=== PATIENT | female | born 2000 | race Caucasian/White ===

== ENCOUNTER 2019-02-26 11:18 | Emergency (ER) | payer OTHER ==
[~2019-02-26] VITALS: Ht 167.6 cm; Wt 50.6 kg
--- NOTE | 2019-02-26 11:42 | NUR ---
FIRST CONTACT WITH PT: Pt states, "starting this morning I have had on and off sharp pains in my lower right abdomen. I haven't vomited. My last period ended last week. I only take control." NADN. Call light within reach. Pt's mother at bedside. Warm blanket offered for comfort measures.
--- NOTE | 2019-02-26 11:54 | NUR ---
Pt declines offer of pain medication or nausea medication. Pt ambulates with steady gait and balance to restroom.
[2019-02-26 11:59] LABS: BASOPHILS # (AUTO) 0.05 x10^3/uL (0-0.3); BASOPHILS % (AUTO) 1 % (0-1); EOSINOPHILS # (AUTO) 0.24 x10^3/uL (0-0.8); EOSINOPHILS % (AUTO) 3 % (1-7); LYMPHOCYTES # (AUTO) 2.31 x10^3/uL (1-6.1); LYMPHOCYTES % (AUTO) 27 % (22-44); MD NO; MEAN CORPUSCULAR HEMOGLOBIN 31.3 pg (27.0-34.8); MEAN CORPUSCULAR HGB CONC 34.2 g/dL (32.4-35.8); MEAN CORPUSCULAR VOLUME 91.3 fL (80-100); MEAN PLATELET VOLUME 9.6 fL (7.4-10.4); MONOCYTES % (AUTO) 6 % (2-9); NEUTROPHILS # (AUTO) 5.47 x10^3/uL (1.8-8.0); NEUTROPHILS % (AUTO) 64 % (42-75); PLATELET COUNT 171 x10^3/uL (130-400); RED CELL DISTRIBUTION WIDTH 13.1 % (9.6-15.2)
[2019-02-26] MEDS ORDERED: ONDANSETRON ODT 4 MG PO ONE (12:00)
[2019-02-26 12:11] LABS: ALANINE AMINOTRANSFERASE 24 U/L (12-78); ANION GAP 5 mmol/L (5-15); CALCIUM 9.2 mg/dL (8.5-10.1); CHLORIDE 108 mmol/L (98-107); CREATININE 0.76 mg/dL (0.55-1.02)
[2019-02-26 12:16] LABS: ALKALINE PHOSPHATASE 68 U/L (45-117); BILIRUBIN,TOTAL 0.6 mg/dL (0.2-1.0); TOTAL PROTEIN 7.4 g/dL (6.4-8.2)
[2019-02-26 12:35] LABS: MICROSCOPIC NOT IND
[2019-02-26 12:38] LABS: CULTURE INDICATED? NO
[2019-02-26] MEDS ORDERED: OMNIPAQUE 350 MG/ML, 100ML BOTTLE ONE (14:06)
--- NOTE | 2019-02-26 14:31 | NUR ---
Patient given discharge instructions and they have confirmed that they understand the instructions. Patient ambulatory with steady gait. Pt left with discharge paperwork, prescription, and all personal belongings.
[2019-02-26 14:32] VITALS: BP 113/63
== END 2019-02-26 14:34 | disposition home or self-care (01) ==
LOC: ED 12:01
DX: N83.291 Other ovarian cyst, right side (principal); R10.31 Right lower quadrant pain; R11.0 Nausea
CPT/HCPCS: 36415; 74177; 76830; 80053; 81003; 84703; 85025; 99284; Q9967